=== PATIENT | female | born 1960 | race Caucasian/White ===

== ENCOUNTER 2020-05-04 03:00 | Observation (INO) ==
[2020-05-04 03:59] LABS: Bilirubin,Urine Negative (Negative); Blood,Urine Moderate (Negative); Clarity,Urine Turbid (Clear); Color,Urine Light-Yellow (Yellow); Glucose,Urine (UA) Normal (Normal); Hyaline Casts,Urine Few per lpf (None Seen); Ketones,Urine Negative (Negative); Leukocyte Esterase,Urine Small (Negative); Mucus,Urine Few per lpf (None-Few); Nitrite,Urine Negative (Negative); Protein,Urine Trace mg/dL (Neg-Trace); RBC,Urine 0-3 per hpf (0-3); Uric Acid Crystals,Urine Present; Urobilinogen,Urine Normal (Normal)
[2020-05-04] MEDS ORDERED: 0.9 % Sodium Chloride 1,000 ML IVC ONE ×2 (04:45→08:08)
[2020-05-04] MEDS ORDERED: Morphine Sulfate 2 MG/ML SYRINGE IVP ONE (04:45)
[2020-05-04] MEDS ORDERED: Ondansetron 4 MG/2 ML VIAL IVP ONE ×2 (04:45→08:08)
[2020-05-04 05:14] LABS: Basophils # 0.1 K/mcL (0.0-0.2); Basophils % 0.4 %; Eosinophils # 0.2 K/mcL (0.0-0.6); Eosinophils % 1.3 %; Hematocrit 43.5 % (35.3-44.9); Hemoglobin 14.2 g/dL (11.5-15.4); Immature Granulocytes % 0.4 % (0-4); Lymphocytes # 1.1 K/mcL (0.6-4.6); Lymphocytes % 8.1 %; Mean Corpuscular HGB Conc 32.6 g/dL (31.6-35.5); Mean Corpuscular Hemoglobin 28.8 pg (28.0-33.3); Mean Corpuscular Volume 88.2 fL (83.0-100.0); Mean Platelet Volume 9.2 fL (9.4-12.4); Monocytes # 0.9 K/mcL (0.0-1.3); Monocytes % 6.7 %; Neutrophils # 11.6 K/mcL (1.6-8.9); Platelet Count 208 K/mcL (140-400); Red Blood Count 4.93 M/mcL (3.82-4.97); Segmented Neutrophils % 83.1 %
[2020-05-04 05:34] LABS: Alanine Aminotransferase 17 Units/L (7-52); Albumin 4.2 g/dL (3.5-5.7); Albumin/Globulin Ratio 1.7 (1.1-2.2); Alkaline Phosphatase 54 Units/L (34-104); Aspartate Amino Transferase 15 Units/L (13-39); BUN/Creatinine Ratio 31 (6-26); Bilirubin,Indirect 0.5 mg/dL (0.0-1.0); Bilirubin,Total 0.5 mg/dL (0.3-1.0); Blood Urea Nitrogen 29 mg/dL (8-23); Calcium 9.1 mg/dL (8.6-10.3); Carbon Dioxide 20 mEq/L (23-29); Chloride 107 mEq/L (98-107); Globulin 2.5 g/dL (2.4-3.5); Glucose 178 mg/dL (70-105); Lipase 29 Units/L (11-82); Osmolality,Calculated 296 (280-300); Potassium 3.7 mEq/L (3.5-5.1); Sodium 138 mEq/L (136-145); Total Protein 6.7 g/dL (6.4-8.9); Troponin I < 0.03 ng/mL (< 0.04); eGFR For African Americans > 60 (> 60); eGFR For Non-African Americans 60 (> 60)
[2020-05-04] MEDS ORDERED: Isovue-370 500 ML BOTTLE IVP ONE (06:25)
[2020-05-04] MEDS ORDERED: cefTRIAXone 1,000 MG in 0.9 % Sodium Chloride Mini Bag 100 ML IVPB ONE (08:08)
[2020-05-04] MEDS ORDERED: *HR* HYDROmorphone (PF) 1 MG/ML SYRINGE IVP ONE (08:09)
[2020-05-04] MEDS ORDERED: Naloxone 0.4 MG/ML INJ IVP PRN ×3 (10:37→18:15)
[2020-05-04] MEDS ORDERED: Ondansetron 4 MG/2 ML VIAL IVP PRN ×3 (10:37→18:15)
[2020-05-04] MEDS ORDERED: *HR* Dextrose 50 % in Water (Vial) 50 ML VIAL IVP PRN (10:40)
[2020-05-04] MEDS ORDERED: D5% in Water 1,000 ML IVC PRN (10:40)
[2020-05-04] MEDS ORDERED: Dextrose Gel 15 GM/37.5 ML TUBE PO PRN ×2 (10:40)
[2020-05-04] MEDS ORDERED: 0.9 % Sodium Chloride 1,000 ML IVC SCH (10:45)
[2020-05-04] MEDS ORDERED: *HR* HYDROmorphone (PF) 1 MG/ML SYRINGE IVP PRN (10:48)
[2020-05-04 11:20] LABS: Estimated Average Glucose 126 mg/dl
[2020-05-04] MEDS ORDERED: Ketorolac 30 MG/ML VIAL IM SCH ×2 (12:00→16:00)
[2020-05-04] MEDS: Insulin LISPRO 300 UNITS/3 ML VIAL SUBQ SCH ×2 (13:40→19:03)
[2020-05-04 13:52] LABS: Adenovirus Not Detected (Not Detect); Bordetella Pertussis Not Detected (Not Detect); Chlamydophila pneumoniae Not Detected (Not Detect); Coronavirus 229E Not Detected (Not Detect); Coronavirus HKU1 Not Detected (Not Detect); Coronavirus NL63 Not Detected (Not Detect); Coronavirus OC43 Not Detected (Not Detect); Human Metapneumovirus Not Detected (Not Detect); Human Rhinovirus/Enterovirus Not Detected (Not Detect); Influenza A Subtype 2009 H1 Not Detected (Not Detect); Influenza B Not Detected (Not Detect); Mycoplasma pneumoniae Not Detected (Not Detect); Parainfluenza Virus 1 Not Detected (Not Detect); Parainfluenza Virus 2 Not Detected (Not Detect); Parainfluenza Virus 3 Not Detected (Not Detect); Parainfluenza Virus 4 Not Detected (Not Detect); Respiratory Syncytial Virus Not Detected (Not Detect); SARS-CoV-2 Not Detected (Not Detect)
[2020-05-04] MEDS ORDERED: *HR* FentaNYL (PF) 100 MCG/2 ML VIAL ONE (16:18)
[2020-05-04] MEDS ORDERED: *HR* Propofol 200 MG/20 ML VIAL IVP ONE (16:18)
[2020-05-04] MEDS ORDERED: Dexamethasone 4 MG/ML VIAL ONE (16:20)
[2020-05-04] MEDS ORDERED: Lidocaine -MPF 2% 2 ML VIAL ONE (16:20)
[2020-05-04] MEDS ORDERED: Albuterol 2.5 MG/3 ML NEBULIZER IH PRN (16:20)
[2020-05-04] MEDS ORDERED: *HR* FentaNYL (PF) 100 MCG/2 ML VIAL IVP PRN (16:20)
[2020-05-04] MEDS ORDERED: *HR* Promethazine 25 MG/ML VIAL IM PRN (16:20)
[2020-05-04] MEDS ORDERED: Nitroglycerin 0.4 MG TAB.SUBL SL PRN (16:20)
[2020-05-04] MEDS ORDERED: *HR* HYDROmorphone PF 0.5 MG/0.5 ML SYRINGE IVP PRN (16:20)
[2020-05-04] MEDS ORDERED: *HR* HYDROcodone/Acet 5/325 mg TABLET PO PRN (18:15)
[2020-05-04] MEDS ORDERED: Hyoscyamine SL 0.125 MG TAB.SUBL SL PRN (18:15)
[2020-05-04] MEDS ORDERED: Budesonide/Formoterol 80/4.5 1 PUFF INH IH PRN (18:15)
[2020-05-04] MEDS ORDERED: Ibuprofen 400 MG TABLET PO PRN (18:27)
[2020-05-04] MEDS ORDERED: Insulin LISPRO 300 UNITS/3 ML VIAL SUBQ SCH ×2 (21:00)
[2020-05-04] MEDS: Ketorolac 30 MG/ML VIAL IVP SCH (23:27)
[2020-05-04] MEDS: 0.9 % Sodium Chloride 1,000 ML IVC SCH (23:27)
[2020-05-05] MEDS ORDERED: Ketorolac 30 MG/ML VIAL IM SCH
[2020-05-05 07:27] VITALS: BP 117/73
[2020-05-05] MEDS ORDERED: Insulin LISPRO 300 UNITS/3 ML VIAL SUBQ SCH (07:30)
[2020-05-05] MEDS: Ketorolac 30 MG/ML VIAL IVP SCH (08:42)
[2020-05-05] MEDS ORDERED: cefTRIAXone 1,000 MG in Water for inj. (sterile) 10 ML IVP SCH ×2 (09:00)
[2020-05-05] MEDS: 0.9 % Sodium Chloride 1,000 ML IVC SCH (09:43)
[2020-05-09 12:34] LABS: Calculi Mass 12 mg
== END 2020-05-05 11:18 | disposition home or self-care (01) ==
LOC: 3BNU 03:00 → EMEROOARM 03:00 → 3BNU 12:33
PROVIDERS: ADMIT General Practice; ATTEND General Practice